=== PATIENT | male | born 1950 | race Caucasian/White ===

== ENCOUNTER 2019-03-27 09:25 | Observation (INO) | payer OTHER ==
[2019-03-27] MEDS ORDERED: NS 1,000 ML IV ONE (09:27)
[2019-03-27] MEDS ORDERED: diphenhydrAMINE 25 MG CAP PO ONE (09:27)
[2019-03-27] MEDS ORDERED: FAMOTIDINE 20 MG TAB PO ONE (09:27)
[2019-03-27] MEDS ORDERED: DIAZEPAM 5 MG TAB PO ONE (09:27)
[2019-03-27] MEDS ORDERED: ASPIRIN EC 325 MG TAB PO ONE (09:27)
[2019-03-27 10:01] LABS: PLATELET COUNT 187 10^3/uL (150-400)
[2019-03-27 10:10] LABS: INR 1.06 (0.83-1.16); PROTIME(PATIENT) 13.4 SEC (12.0-15.0)
[2019-03-27] MEDS ORDERED: LIDOCAINE 1% 300 MG/30 ML SDV ONE (12:37)
[2019-03-27] MEDS ORDERED: fentaNYL 100 MCG/2 ML INJ ONE ×2 (12:38→13:53)
[2019-03-27] MEDS ORDERED: MIDAZOLAM 2 MG/2 ML VIAL ONE ×2 (12:38→13:53)
[2019-03-27] MEDS ORDERED: IOPAMIDOL (ISOVUE 370) 100 ML BTL IV ONE ×3 (12:38→14:41)
--- NOTE | 2019-03-27 12:49 | PDHPUP ---
History & Physical Update H&P update statement: This history and physical update is based on an assessment of the patient which was completed after admission or registration (within 24 hours), but prior to the surgery/procedure.Pt presents for C in the setting of new onset of chest pain and abnormal nuclear stress with anterior lateral defect. Risks and benefits discussed in detail. Consents signed. H&P update: H&P reviewed & patient examined, no change in patient's condition since H&P completed
--- NOTE | 2019-03-27 12:50 | PDPROPOC ---
Sedation Plan of Care Sedation Plan of Care: vital signs stable, mental status noted, patient educated of risks, benefits, alternatives, patient can tolerate sedation ASA Classification: ASA 2 Planned drugs: fentanyl, midazolam Mallampati Score: Class 2 Mallampati Reference Image: Patient passed 3-3-2 rule?: Yes
[2019-03-27] MEDS ORDERED: NITROGLYCERIN 1,500 MCG/15 ML VIAL MISC ONE (13:29)
[2019-03-27] MEDS ORDERED: ADENOSINE 90 MG/30 ML VIAL IV ONE (13:29)
[2019-03-27] MEDS ORDERED: BIVALIRUDIN 250 MG/5 ML VIAL IV ONE ×2 (13:29→14:40)
--- NOTE | 2019-03-27 13:50 | PDDXCAT ---
Diagnostic Cath Note - . Date: 03/28/19 [employer] Manager: Nader Indication: CCC Class III and IV angina on medical treatment, other (Abnormla nuclear stress test, CCS Class IV angina occurring at rest) - Procedure Access: right wrist Procedure: coronary angiography, other (FFR of LAD as well as multilevel stenting of the LAD as noted under intervention section) - Materials Left Heart Cath size: 6F Left Heart Cath materials: JL3.5 Complications: NONE Estimated blood loss: <50ml Plan: Aspirin 81mg along with Plavix 75mg daily should be continued for at least 1 year following drug eluting stent implantation. No elective surgery for the first 3 months. Decisions to stop dual antiplatelet therapy before 1 year should involve our office [facility] and Dr. Armando Hobson at . Intervention: A 6 [place]an Convey JL 3.5 guiding catheter was used for guide catheter support. A 0.014" 175cm FFR Wire was advanced across the lesion in question under direct fluoroscopic and angiographic guidance. A 2.0 x 12mm Emerge balloon was advanced over the lesion in the LAD with serial inflations at a maximum pressure of 16atm for 10 seconds. The balloon was then removed and a 6F Guidzilla guide liner catheter was used for additional support. The lesion distal to the second major diagonal was stented with a 2.5 x 12mm Synergy drug eluting stent. There was 75% stenosis pre and 0% residual post stent implantation. A 2.75 x 28mm Synergy drug eluting stent was then advanced across the FFR Wire to the mid LAD between the diagonal 1 and 2 branches and deployed at a maximum pressure of 14atm for 10 seconds. There was 70% stenosis pre 5% residual post stent implantation. The FFR Wire was removed with the Guidzilla guiding catheter and replaced with a short 180cm Intuition Wire. A 3.0 x 16 Synergy drug eluting stent was advanced over the wire across the lesion in the proximal LAD. The stent was deployed at a maximum pressure of 18 harvey for 25 seconds. There was 75% stenosis pre and 5% residual post stent implantation. The Convey JL 3.5 guiding catheter was removed and replaced with a 6F EBU 3.5 guiding catheter for guiding catheter support. A 190cm Wiggle Wire was placed down the LAD in addition to the short Intuition Wire. A 3.0 x 8m Emerge NCballoon was advanced over the Wiggle Wire with serial inflations at a maximum pressure of 20atm for 10seconds. There was TARAH III flow pre and post stent implantation. Final impression: Successful multilevel NONOVERLAPPING stent placement of the LAD as noted above for indication of FFR positive at .77 with IV Adenoisine challenge. This required multilevel repair as a series of marginal lesions likely responsible for pressure drop as noted on pressure wire pullback.
[2019-03-27] MEDS ORDERED: CLOPIDOGREL BISULFATE 75 MG TAB ONE (14:57)
[2019-03-27] MEDS ORDERED: ONDANSETRON 4 MG/2 ML VIAL IVP PRN (14:59)
[2019-03-27] MEDS ORDERED: ATROPINE SULFATE 1 MG/10 ML SYR IVP PRN (14:59)
[2019-03-27] MEDS ORDERED: LORazepam 2 MG/ML INJ IVP PRN (14:59)
[2019-03-27] MEDS ORDERED: TEMAZEPAM 15 MG CAP PO PRN (14:59)
[2019-03-27] MEDS ORDERED: HYDROCODONE/APAP 5/325 TAB PO PRN (14:59)
[2019-03-27] MEDS ORDERED: CLOPIDOGREL BISULFATE 75 MG TAB PO ONE (14:59)
[2019-03-27] MEDS ORDERED: OXYCODONE/APAP 5/325 TAB PO PRN (14:59)
[2019-03-27] MEDS ORDERED: NITROGLYCERIN 0.4 MG BTL SL PRN (14:59)
[2019-03-27] MEDS ORDERED: NS 1,000 ML IV SCH (15:00)
--- NOTE | 2019-03-27 18:24 | CPIP ---
[f rep st] INVASIVE CARDIAC PROCEDURE DATE OF PROCEDURE: 03/27/2019 INDICATION FOR CONSULTATION: The patient with new onset of substernal chest pain, which he describes as "soreness", coupled with abnormal exercise nuclear stress test performed at [facility] in [place], demonstrating large area in the anterolateral wall, fixed defect consistent with prior a nterolateral wall infarct. The patient has no known history of coronary disease or previous myocardi al infarction and is continuing to experience chest pain. DESCRIPTION OF PROCEDURE: After informed consent was obtained, the patient was brought to the [facility] catheterization lab, where he was prepped and draped in a sterile fashion. Using 1% lidocaine, the right groin was anesthetized. Using modified Seldinger technique with micropuncture technique, a 6- Vietnamese catheter was placed into the right common femoral artery without complications. A JL4 cathete r was used to take images of the left coronary anatomy in multiple projections. The JL4 catheter was exchanged over a guidewire for a JR4 catheter. JR4 catheter was used to cross the aortic valve. JR 4 catheter was used to can cannulate the right coronary artery. Images of the right coronary anatomy were obtained in multiple projections. JR4 catheter was exchanged over a guidewire for an angled pi gtail catheter. Angled pigtail catheter was used to cross the aortic valve. Left ventriculogram was performed. LVEDP was assessed. Left aortic valve gradient on pullback. Angled pigtail catheter was removed over a guidewire. Imaging of the right common femoral artery dem onstrated appropriate placement of the sheath above the bifurcation of the femoral vessel and below t he inguinal ligament, appropriate for Angio-Seal deployment. FINDINGS: 1. Left main, normal size and caliber, bifurcates into the left anterior descending and left circumf wolf coronary artery. There is no evidence of coronary disease in the left main. 2. Left anterior descending demonstrates a 70% proximal stenosis proximal to the first diagonal bran ch. There are 2 other lesions of 70% stenosis in the proximal LAD. The remainder of the LAD is free of disease. There is a diagonal branch with no evidence of coronary disease. 3. Circumflex is a nondominant small vessel. There is no evidence of flow-limiting coronary disease or in the 1st or 2nd obtuse marginal branch. 4. The right coronary artery is a large caliber, dominant vessel with a PDA and PLV branch. There a re mild luminal irregularities within the right coronary artery. HEMODYNAMICS: LVEF 60% to 65%. LVEDP 12 mmHg. Aortic valve gradient, none. FINDINGS: 1. Significant single-vessel coronary disease in proximal LAD. I have reviewed the findings with my interventional colleague, Dr. Doe. Recommend FFR for further evaluation to see if he meets crite umair for intervention. 2. Normal left ventricular function with normal hemodynamics. /[id number]/MODL
[2019-03-27] MEDS ORDERED: traZODone 50 MG TAB PO SCH (21:00)
[2019-03-27] MEDS ORDERED: ATORVASTATIN CALCIUM 10 MG TAB PO SCH (21:00)
[2019-03-28 04:34] LABS: PLATELET COUNT 166 10^3/uL (150-400)
[2019-03-28 07:30] VITALS: BP 122/74
[2019-03-28] MEDS ORDERED: ASPIRIN EC 325 MG TAB PO SCH (09:00)
[2019-03-28] MEDS ORDERED: TAMSULOSIN HCL 0.4 MG CAP PO SCH (09:00)
[2019-03-28] MEDS ORDERED: CLOPIDOGREL BISULFATE 75 MG TAB PO SCH (09:00)
--- NOTE | 2019-03-28 09:56 | ASDISCHSUM ---
Discharge Information Plan Status:Home with No Needs Medically Cleared to Leave:03/28/2019 Discharge Date:03/28/2019 CM D/C Disposition:Home, Routine, Self-Care ADT D/C Disposition:Home, Routine, Self-Care Projected Discharge Date:03/28/2019 Transportation at D/C: Discharge Delay Reason: Follow-Up Date:03/28/2019 Discharge Slot: Final Diagnosis: Placement Information Patient Contact Information Contact Name:MARSHA Relationship: Address:[address] [facility] Work Phone: City:[facility] Phone: [facility]/Zip Code:[place] [address] Email: Financial Information Financial Class:Medicare Advantage Plans Primary Plan Desc:[employer] PPO MEDICARE Primary Plan Number:[id number] Secondary Plan Desc: Secondary Plan Number: Assessment Information LACE LACE Length of stay for Answers: Less than 1 day current admission Acuity / Level of Answers: No Care: Did the patient have an inpatient admission? Comorbidities - select Answers: Coronary Artery Disease all that apply # of Emergency department Answers: 0 visits in the last 6 months Score: 2 Date Signed: 03/28/2019 09:55 AM Electronically Signed By:Kim Orta RN Intervention Information
--- NOTE | 2019-03-28 10:30 | GDS ---
[f rep st] DISCHARGE SUMMARY DISCHARGE DIAGNOSIS: 1. Single-vessel coronary artery disease, status post stenting to 3 lesions within the left anterior descending artery. A 2.5 x 12 mm Synergy drug-eluting stent was used for the distal lesion; a 2.75 x 28 mm Synergy drug-eluting stent was used for the mid left anterior descending artery, and a 3 x 16 mm Synergy drug-eluting stent was used for the proximal left anterior descending artery. 2. Hyperlipidemia. HOSPITAL COURSE: For detailed H and P, please see prior dictation. Briefly, this patient is a 68-ye ar-old male who presented to our office with complaints of intermittent chest discomfort. His chest pain began when driving from [place] to [place]. His symptoms progressed and, therefore, he received m edical attention at [facility] in [place]. He had a nuclear stress test, which was abnormal showing a fixed anterior lateral wall defect with preserved LV function. He ultimately was able to proceed back to [place], [place]. He continued to have intermittent chest discomfort and, therefore , had a left heart catheterization Dr. Lv Hobson on 03/27/2019. He was identified to have single-ve ssel coronary disease with 3 serial lesions of 70% within the LAD. The decision was made to proceed with intervention, which was performed by Dr. Blanco Doe. The distal LAD was stented with a 2.5 x 12 mm Synergy drug-eluting stent; the mid LAD was stented with a 2.75 x 28 mm drug-eluting stent, and the proximal LAD was stented with a 3 x 16 mm drug-eluting stent. The following day, the patient co ntinued to complain of mild chest discomfort, but it had significantly improved. He rated it at 1/10 . He was monitored on telemetry and remained in normal sinus rhythm. His EKG the day of discharge r evealed normal sinus rhythm without any ST-T wave changes to suggest ischemia. Access for the angiog yue was obtained from the right groin. He denies any discomfort of the groin site. He has been up a mbulating around his room today. LABORATORY: Triglycerides 81, total cholesterol 131, LDL 63, HDL 52. PHYSICAL EXAMINATION: GENERAL: Patient appears in no acute distress. VITALS: Blood pressure 122/7 4, heart rate 56, oxygen saturation of 92% on room air. Afebrile. LUNGS: Clear to auscultation. N o wheezes, rhonchi, or crackles auscultated. CARDIAC: Regular rate and rhythm, without any murmurs, rubs, or gallops appreciated. EXTREMITIES: His right groin where access was obtained for the angio gram is clean, intact without any evidence of infection or hematoma. DISCHARGE MEDICATIONS: Aspirin 325 mg daily has been added. He will continue Lipitor 10 mg daily, P lavix 75 mg daily, Flomax 0.4 mg daily, and trazodone 50 mg at bedtime. PLAN: The patient is currently stable ready for discharge home. He has been given groin precautions . He is scheduled to follow up with Dr. Lv Hobson on 04/12 at 10 a.m. /[id number]/MODL
--- NOTE | 2019-04-01 13:37 | CPEKG ---
Test Reason : OPEN Blood Pressure : / mmHG Vent. Rate : 066 BPM Atrial Rate : 066 BPM P-R Int : 177 ms QRS Dur : 096 ms QT Int : 425 ms P-R-T Axes : 062 054 003 degrees QTc Int : 446 ms Sinus rhythm inferolateral st depression Confirmed by Fermín Aleman ([id number]) on 04/01/2019 1:36:58 PM Referred By: Armando Hobson Confirmed By:Fermín Aleman
--- NOTE | 2019-04-01 13:53 | CPEKG ---
Test Reason : OPEN Blood Pressure : / mmHG Vent. Rate : 051 BPM Atrial Rate : 051 BPM P-R Int : 212 ms QRS Dur : 100 ms QT Int : 494 ms P-R-T Axes : 051 044 002 degrees QTc Int : 456 ms Sinus rhythm Borderline prolonged UT interval Abnormal R-wave progression, early transition Confirmed by Fermín Aleman ([id number]) on 04/01/2019 1:53:07 PM Referred By: Armando Hobson Confirmed By:Fermín Aleman
--- NOTE | 2019-04-01 15:27 | CPEKG ---
Test Reason : OPEN Blood Pressure : / mmHG Vent. Rate : 065 BPM Atrial Rate : 066 BPM P-R Int : 187 ms QRS Dur : 097 ms QT Int : 413 ms P-R-T Axes : 042 051 022 degrees QTc Int : 430 ms Sinus rhythm Confirmed by Fermín Aleman ([id number]) on 04/01/2019 3:26:48 PM Referred By: Armando Hobson Confirmed By:Fermín Aleman
== END 2019-03-28 11:55 | disposition home or self-care (01) ==
LOC: FCATH 09:25 → F2W 14:59
PROVIDERS: ADMIT Internal Medicine Cardiovascular Disease; ATTEND Internal Medicine Cardiovascular Disease
PROC: 027036Z Dilation of Coronary Artery, One Artery with Three Drug-eluting Intraluminal Devices, Percutaneous Approach (ICD-10-PCS; principal; 2019-03-27)
PROC: B2111ZZ Fluoroscopy of Multiple Coronary Arteries using Low Osmolar Contrast (ICD-10-PCS; 2019-03-27)
PROC: 4A023N7 Measurement of Cardiac Sampling and Pressure, Left Heart, Percutaneous Approach (ICD-10-PCS; 2019-03-27)
PROC: B2151ZZ Fluoroscopy of Left Heart using Low Osmolar Contrast (ICD-10-PCS; 2019-03-27)
DX: I25.119 Atherosclerotic heart disease of native coronary artery with unspecified angina pectoris (principal); E78.5 Hyperlipidemia, unspecified; Z82.49 Family history of ischemic heart disease and other diseases of the circulatory system
CPT/HCPCS: 93458; 93571; C1725; C1760; C1769; C1874; C1887; C9600; G0378; J0153; J0583; J1644; J2250; J3010; Q9967